=== PATIENT | female | born 1985 | race Caucasian/White ===

== ENCOUNTER → 2020-09-02 | Outpatient (CLI) | payer OTHER ==
--- NOTE | 2020-09-02 09:35 | KCIC ---
Examination: MRI of the left knee without contrast HISTORY: History of left knee injury, posterior knee pain Technique: Multiplanar, multisequence MR imaging of the left knee without contrast Comparison: None available FINDINGS: There is increased signal in the proximal portion of the anterior cruciate ligament likely tear of th e anterior cruciate ligament. The posterior cruciate ligament appears intact. The medial, lateral meniscus appears intact. The medial collateral ligament appears intact. The lateral collateral ligamentous complex including t he fibular collateral ligament, biceps femoris and popliteus tendon appears intact The extensor mechanism appears intact. Moderate knee joint effusion. Mild increased T2 signal identified in the posterior aspect of the late ral tibial plateau and medial tibial plateau likely contusions. There is mild superficial fraying of cartilage identified in the medial compartment. The medial, lateral retinaculum appears intact. Small popliteal cyst identified. IMPRESSION: 1. Tear of the anterior cruciate ligament. 2. Mild increased T2 signal identified in the posterior aspect of the lateral tibial plateau and med ial tibial plateau likely contusions.Moderate knee joint effusion with small popliteal cyst. 3. Grade I chondromalacia medial compartment. Electronically signed by: Taj Longoria MD (09/02/2020 9:32 AM) [id number]
== END ==
LOC: KCIC MRI 07:53
PROVIDERS: ATTEND Family Medicine
DX: S83.512A Sprain of anterior cruciate ligament of left knee, initial encounter (principal); M23.8X2 Other internal derangements of left knee; M25.462 Effusion, left knee; M71.22 Synovial cyst of popliteal space [Baker], left knee; M94.262 Chondromalacia, left knee; X58.XXXA Exposure to other specified factors, initial encounter; Y93.89 Activity, other specified; Y92.89 Other specified places as the place of occurrence of the external cause; Y99.8 Other external cause status
CPT/HCPCS: 73721